=== PATIENT | female | born 1955 | race Two or more races ===

== ENCOUNTER → 2022-07-26 | Outpatient (CLI) | payer MEDICARE, MEDICAID | END | disposition home or self-care (01) | LOC: Rad HDHVI 14:20 | PROVIDERS: ATTEND Internal Medicine Cardiovascular Disease | DX: I10 Essential (primary) hypertension (principal) | CPT/HCPCS: 93306 ==

== ENCOUNTER → 2022-08-18 | Outpatient (CLI) | payer MEDICARE, MEDICAID ==
[~2022-08-18] MED LIST: IOHEXOL 350 MG/ML 100ML IJ ONE
[2022-08-18 11:58] VITALS: BP 160/55
[2022-08-18 12:20] VITALS: BP 160/55
== END | disposition home or self-care (01) ==
LOC: Rad HDHVI 11:48
PROVIDERS: ATTEND Internal Medicine Cardiovascular Disease
DX: R51.9 Headache, unspecified (principal)
CPT/HCPCS: 70470; G0463; Q9967

== ENCOUNTER → 2023-10-18 | Outpatient (CLI) | payer MEDICARE, MEDICAID | END | disposition home or self-care (01) | LOC: Rad HDHVI 15:52 | PROVIDERS: ATTEND Internal Medicine Cardiovascular Disease | DX: I08.0 Rheumatic disorders of both mitral and aortic valves (principal); R06.02 Shortness of breath; I10 Essential (primary) hypertension | CPT/HCPCS: 93306 ==

== ENCOUNTER → 2023-10-24 | Outpatient (CLI) | payer MEDICARE, MEDICAID ==
[~2023-10-24] VITALS: Ht 152.4 cm; Wt 68.0 kg
[~2023-10-24] MED LIST changes: +ADENOSINE 57 MG in GIVE UN-DILUTED 0 ML IV ONE; +ADENOSINE 90 MG/30 ML INJ IV ONE; -IOHEXOL 350 MG/ML 100ML IJ ONE
== END | disposition home or self-care (01) ==
LOC: Rad HDHVI 09:55
PROVIDERS: ATTEND Internal Medicine Cardiovascular Disease
DX: I72.0 Aneurysm of carotid artery (principal); R06.02 Shortness of breath; I10 Essential (primary) hypertension; I25.2 Old myocardial infarction; E78.00 Pure hypercholesterolemia, unspecified
CPT/HCPCS: 78452; 93005; 96374; A9500; J0153; 96375

== ENCOUNTER → 2024-02-15 | Outpatient (CLI) | payer MEDICARE, MEDICAID ==
[~2024-02-15] MED LIST changes: +ACET-1304 PO; -ADENOSINE 57 MG in GIVE UN-DILUTED 0 ML IV ONE; -ADENOSINE 90 MG/30 ML INJ IV ONE; +ASPI-543 PO; +ATOR40TA52 PO; +CETI-120 PO; +FLUT1AER3 IN; +HYDR-2792 PO; +MECL-90 PO; +METO25TA93 PO; +PANT40T PO; +SACU1TAB7 PO
[2024-02-15 09:53] VITALS: BP 129/62; PULSE 70; RESP 16; O2SAT 97
[2024-02-15 10:27] VITALS: BP 125/60; PULSE 70; RESP 16; O2SAT 97
== END | disposition home or self-care (01) ==
LOC: Rad HDHVI 09:34
PROVIDERS: ATTEND Internal Medicine Cardiovascular Disease
DX: Z01.818 Encounter for other preprocedural examination (principal)
CPT/HCPCS: 71046; 93005; G0463

== ENCOUNTER 2024-02-16 08:30 | Day surgery (SDC) | payer MEDICARE, MEDICAID ==
[2024-02-15 13:00] LABS: Basophils % (auto) 0.3 % (0.0-2.0); Eosinophils # (auto) 0 10 ^3/uL (0-0.8); Lymphocytes # (auto) 1.1 10 ^3/uL (0.4-5.4); Monocytes # (auto) 0.2 10 ^3/uL (0-1.3)
[2024-02-15 13:05] LABS: Basophils # (auto) 0.1 10 ^3/uL (0-0.2); Eosinophils % (auto) 0.1 % (0.0-7.0); Hematocrit 32.2 % (36.0-46.0); Hemoglobin 10.5 g/dL (12.2-16.2); Lymphocytes % (auto) 7.1 % (10.0-50.0); Mean Corpuscular Hemoglobin 24.3 pg (28.0-32.0); Mean Corpuscular Hgb Conc. 32.5 g/dL (32.0-36.0); Mean Corpuscular Volume 74.7 fL (80.0-100.0); Neutrophils # (auto) 13.6 10 ^3/uL (1.6-8.6); Neutrophils % (auto) 91.5 % (37.0-80.0); Platelet Count (auto) 649 10^3/uL (140-450); Red Blood Cells 4.31 10^6/uL (4.0-5.20); White Blood Cell 14.9 10^3/uL (4.4-10.8)
[2024-02-15 13:17] LABS: INR 1.65 (0.9-1.15); Prothrombin Time 16.9 sec (9.3-11.8)
[2024-02-15 13:20] LABS: Red Cell Distribution Width 28.4 % (11.8-14.3)
[2024-02-15 13:44] LABS: Chloride 106 mmol/L (98-107); Potassium 4.4 mmol/L (3.5-5.1); Sodium 138 mmol/L (136-145)
[2024-02-15 13:45] LABS: Anion Gap 9 (5-15); Carbon Dioxide 23 mmol/L (20-31)
[2024-02-15 13:50] LABS: BUN/Creatinine Ratio 16.7 (10.0-20.0); Blood Urea Nitrogen 19 mg/dL (9-23); Glucose 121 mg/dL (74-106)
[2024-02-15 14:47] LABS: Platelet Estimate Increased
[2024-02-15 14:48] LABS: Anisocytosis Moderate; Hypochromia Slight
[2024-02-15 14:49] LABS: Ovalocytes FEW; Stomatocytes Few
[~2024-02-16] VITALS: Ht 152.4 cm; Wt 69.4 kg
[2024-02-16] VITALS (10 sets, daily range): BP systolic 112–149; BP diastolic 43–61; PULSE 60–68; RESP 13–18; TEMP 97.9; O2SAT 90–98
[2024-02-16] MEDS ORDERED: fentaNYL CITRATE 100 MCG/2 ML VL ONE (14:09)
[2024-02-16] MEDS ORDERED: ANGIOMAX 250 MG VIAL IV ONE (14:09)
[2024-02-16] MEDS ORDERED: MIDAZOLAM HCL 2MG/2ML 2ml VIAL (1mg/ml) ONE (14:09)
[2024-02-16] MEDS ORDERED: SODIUM CHL 0.9% 0 ML ONE (14:10)
[2024-02-16] MEDS ORDERED: LIDOCAINE 2%HCL (LOCAL ANESTH.) INJ 20ML MDV ONE (14:10)
[2024-02-16] MEDS ORDERED: IOHEXOL 350 MG/ML 100ML IJ ONE (14:33)
[2024-02-16] MEDS: ACETAMINOPHEN 500 MG TAB PO PRN (16:26)
== END 2024-02-16 18:00 | disposition home or self-care (01) ==
LOC: CATH 08:30
PROVIDERS: ATTEND Internal Medicine Cardiovascular Disease
DX: R06.02 Shortness of breath (principal); Z88.6 Allergy status to analgesic agent; Z88.8 Allergy status to other drugs, medicaments and biological substances
CPT/HCPCS: 36415; 80048; 85025; 85610; 85730; 93460; C1760; C1894; J2250; J3010; Q9967; 99152

== ENCOUNTER 2024-03-11 22:22 | Inpatient (IN) | payer MEDICARE, MEDICAID ==
[~2024-03-11] VITALS: Ht 152.4 cm; Wt 68.5 kg
[2024-03-11 23:00] VITALS: PULSE 59; RESP 20; O2SAT 96
[2024-03-11] MEDS: SODIUM CHLORIDE 0.9% 1,000 ML IV ONE (23:00)
[2024-03-11] MEDS: METOCLOPRAMIDE HCL 5MG/ml INJ 2ml VIAL IV ONE (23:00)
[2024-03-11] MEDS: ACETAMINOPHEN 325 MG TAB PO ONE (23:00)
[2024-03-11 23:08] LABS: Basophils # (auto) 0.1 10 ^3/uL (0-0.2); Basophils % (auto) 1.3 % (0.0-2.0); Monocytes # (auto) 0.6 10 ^3/uL (0-1.3); White Blood Cell 9.6 10^3/uL (4.4-10.8)
[2024-03-11 23:11] LABS: Eosinophils # (auto) 0.1 10 ^3/uL (0-0.8); Eosinophils % (auto) 1.4 % (0.0-7.0); Hematocrit 33.7 % (36.0-46.0); Hemoglobin 11.3 g/dL (12.2-16.2); Lymphocytes # (auto) 1.6 10 ^3/uL (0.4-5.4); Lymphocytes % (auto) 16.8 % (10.0-50.0); Mean Corpuscular Hemoglobin 27.2 pg (28.0-32.0); Mean Corpuscular Hgb Conc. 33.7 g/dL (32.0-36.0); Mean Corpuscular Volume 80.8 fL (80.0-100.0); Monocytes % (auto) 6.5 % (0.0-12.0); Neutrophils # (auto) 7.1 10 ^3/uL (1.6-8.6); Platelet Count (auto) 458 10^3/uL (140-450); Red Blood Cells 4.16 10^6/uL (4.0-5.20)
[2024-03-11 23:12] LABS: Chloride 102 mmol/L (98-107); Sodium 134 mmol/L (136-145)
[2024-03-11 23:13] LABS: Anion Gap 10 (5-15); Calcium 9.4 mg/dL (8.7-10.4); Carbon Dioxide 22 mmol/L (20-31); Red Cell Distribution Width 32.3 % (11.8-14.3)
[2024-03-11 23:18] LABS: BUN/Creatinine Ratio 11.1 (10.0-20.0); Blood Urea Nitrogen 13 mg/dL (9-23); Glucose 101 mg/dL (74-106)
[2024-03-11 23:33] LABS: Anisocytosis Marked; Ovalocytes FEW; Platelet Estimate Increased
[2024-03-11 23:34] LABS: Target Cell FEW
[2024-03-12] VITALS (11 sets, daily range): BP systolic 148–169; BP diastolic 57–61; PULSE 54–82; RESP 16–19; TEMP 97.8–97.9; O2SAT 96–99
[2024-03-12] MEDS ORDERED: ONDANSETRON HCL 4 MG/2 ML VIAL IV PRN (03:15)
[2024-03-12] MEDS ORDERED: ACETAMINOPHEN 325 MG TAB PO PRN (03:15)
[2024-03-12] MEDS ORDERED: NITROGLYCERIN 0.4 MG SL TAB SL PRN (03:15)
[2024-03-12] MEDS ORDERED: HYDROcodone-ACET 5/325MG TAB PO PRN (03:15)
[2024-03-12] MEDS ORDERED: MORPHINE SULFATE INJ 2 MG/ml SYRG IV PRN (03:15)
[2024-03-12] MEDS ORDERED: ALBUTEROL SULF 2.5 MG/0.5ML(0.5%) NEB SOLN NEB PRN (04:00)
[2024-03-12] MEDS ORDERED: IPRATROPIUM BROM 0.5 MG/2.5ML INH SOL NEB PRN (04:00)
[2024-03-12] MEDS: SODIUM CHLORIDE 0.9% 1,000 ML IV SCH (04:11)
[2024-03-12 05:48] LABS: Urine Bacteria None Seen /hpf (None Seen)
[2024-03-12 05:55] LABS: Urine Blood Negative /uL (Negative); Urine Clarity Clear (Clear); Urine Color Colorless (Yellow); Urine Protein, UAD Negative (Negative); Urine Specific Gravity 1.004 (1.001-1.035); Urine Urobilinogen Normal (Negative); Urine WBC 1 /hpf (0 - 5); Urine pH 6.5 (5.0-9.0)
[2024-03-12] MEDS: ASPirin-EC 81 mg tab PO SCH (10:17)
[2024-03-12] MEDS: hydrALAZINE HCL 10 MG TAB PO SCH ×2 (10:17→22:44)
[2024-03-12] MEDS: PANTOPRAZOLE 40 MG TAB PO SCH (10:17)
[2024-03-12] MEDS: ENOXAPARIN SOD 40 MG/0.4 ML SYRINGE SC SCH (10:17)
[2024-03-12] MEDS: IPRATROPIUM BROM 0.5 MG/2.5ML INH SOL NEB ONE (15:25)
[2024-03-12] MEDS: METOPROLOL SUCCINATE XL 50 MG TAB PO SCH (20:45)
[2024-03-13] VITALS (8 sets, daily range): BP systolic 115–147; BP diastolic 50–58; PULSE 58–80; RESP 16–20; TEMP 97.6–98.2; O2SAT 94–98
[2024-03-13] MEDS ORDERED: LORazepam 2MG/ML-1ML VIAL IV PRN
[2024-03-13 06:02] LABS: Eosinophils # (auto) 0.2 10 ^3/uL (0-0.8); Hemoglobin 10.6 g/dL (12.2-16.2); Lymphocytes # (auto) 1.9 10 ^3/uL (0.4-5.4); Mean Corpuscular Hgb Conc. 32.7 g/dL (32.0-36.0); Neutrophils # (auto) 5.8 10 ^3/uL (1.6-8.6); White Blood Cell 8.6 10^3/uL (4.4-10.8)
[2024-03-13 06:05] LABS: Basophils # (auto) 0.1 10 ^3/uL (0-0.2); Basophils % (auto) 1.5 % (0.0-2.0); Eosinophils % (auto) 2.7 % (0.0-7.0); Hematocrit 32.5 % (36.0-46.0); Lymphocytes % (auto) 21.9 % (10.0-50.0); Mean Corpuscular Hemoglobin 26.7 pg (28.0-32.0); Mean Corpuscular Volume 81.8 fL (80.0-100.0); Monocytes # (auto) 0.6 10 ^3/uL (0-1.3); Monocytes % (auto) 6.7 % (0.0-12.0); Neutrophils % (auto) 67.2 % (37.0-80.0); Platelet Count (auto) 428 10^3/uL (140-450); Red Blood Cells 3.98 10^6/uL (4.0-5.20)
[2024-03-13 06:12] LABS: Alanine Aminotransferase 13 U/L (7-40); Albumin 3.6 g/dL (3.2-4.8); Alkaline Phosphatase 108 U/L (46-116); Anion Gap 8 (5-15); Aspartate Aminotransferase 11 U/L (13-40); BUN/Creatinine Ratio 10.9 (10.0-20.0); Blood Urea Nitrogen 13 mg/dL (9-23); Calcium 9.4 mg/dL (8.7-10.4); Carbon Dioxide 23 mmol/L (20-31); Chloride 111 mmol/L (98-107); Glucose 87 mg/dL (74-106); Potassium 4.2 mmol/L (3.5-5.1); Sodium 142 mmol/L (136-145)
[2024-03-13 06:13] LABS: Bilirubin, Total 0.7 mg/dL (0.2-1.0); Phosphorus 3.1 mg/dL (2.4-5.1); Total Protein 5.9 g/dL (5.7-8.2)
[2024-03-13 06:21] LABS: Red Cell Distribution Width 32.2 % (11.8-14.3)
[2024-03-13 08:37] LABS: Ovalocytes FEW; Platelet Estimate Adequate
[2024-03-13 08:38] LABS: Anisocytosis Marked
== END 2024-03-13 21:04 | disposition home or self-care (01) | DRG 392 ==
LOC: ER 22:22 → TELE 03-12 03:15 → TELE-WESTW 03-12 18:43
PROVIDERS: ATTEND Student in an Organized Health Care Education/Training Program
DX: A08.4 Viral intestinal infection, unspecified (principal); N17.9 Acute kidney failure, unspecified; E86.0 Dehydration; I11.9 Hypertensive heart disease without heart failure; J44.9 Chronic obstructive pulmonary disease, unspecified; E78.5 Hyperlipidemia, unspecified; H53.461 Homonymous bilateral field defects, right side; I67.1 Cerebral aneurysm, nonruptured; G43.909 Migraine, unspecified, not intractable, without status migrainosus; E03.9 Hypothyroidism, unspecified; F17.200 Nicotine dependence, unspecified, uncomplicated; Z88.6 Allergy status to analgesic agent; Z88.8 Allergy status to other drugs, medicaments and biological substances; Z79.82 Long term (current) use of aspirin; Z79.899 Other long term (current) drug therapy; Z83.3 Family history of diabetes mellitus; Z82.49 Family history of ischemic heart disease and other diseases of the circulatory system
CPT/HCPCS: 36415; 70450; 70551; 71045; 80048; 80053; 81001; 82607; 83036; 84100; 84443; 84484; 85025; 93005; 93886; 94640; 95819; 97163; 99291; G0378; J2405

== ENCOUNTER → 2024-03-20 | Outpatient (CLI) | payer MEDICARE, MEDICAID ==
[2024-03-20 16:43] LABS: % Iron Saturation 15.8 % (15-50)
== END | disposition home or self-care (01) ==
LOC: LAB 15:29
PROVIDERS: ATTEND Pathology Anatomic Pathology & Clinical Pathology
DX: D64.9 Anemia, unspecified (principal)
CPT/HCPCS: 83540; 83550

== ENCOUNTER → 2024-03-26 | Outpatient (CLI) | payer MEDICARE, MEDICAID | END | disposition home or self-care (01) | LOC: LAB 15:11 | PROVIDERS: ATTEND Internal Medicine | DX: Z12.11 Encounter for screening for malignant neoplasm of colon (principal); R19.5 Other fecal abnormalities | CPT/HCPCS: 82270 ==

== ENCOUNTER → 2024-07-25 | Outpatient (CLI) | payer MEDICARE, MEDICAID | END | disposition home or self-care (01) | LOC: Rad HDHVI 12:22 | PROVIDERS: ATTEND Internal Medicine Cardiovascular Disease | DX: I10 Essential (primary) hypertension (principal) | CPT/HCPCS: 93306 ==

== ENCOUNTER → 2024-08-08 | Outpatient (CLI) | payer MEDICARE, MEDICAID ==
[2024-08-08] MEDS: IRON SUCROSE 20 mg/ml 10ml VIAL IV ONE (09:23)
[2024-08-08 09:24] VITALS: BP 144/66; PULSE 83; RESP 16; O2SAT 97
[2024-08-08] MEDS: IRON SUCROSE COMPLEX 110 ML IV ONE (09:33)
[2024-08-08 10:35] VITALS: BP 134/62; PULSE 70; RESP 16; O2SAT 97
== END | disposition home or self-care (01) ==
LOC: CHF HDHVI 09:20
PROVIDERS: ATTEND Internal Medicine Cardiovascular Disease
DX: D50.9 Iron deficiency anemia, unspecified (principal); E78.5 Hyperlipidemia, unspecified; E03.9 Hypothyroidism, unspecified; I10 Essential (primary) hypertension; Z79.899 Other long term (current) drug therapy
CPT/HCPCS: 96365; G0463; J1756

== ENCOUNTER → 2024-08-15 | Outpatient (CLI) | payer MEDICARE, MEDICAID ==
[2024-08-15] MEDS: IRON SUCROSE 20 mg/ml 10ml VIAL IV ONE (11:05)
[2024-08-15] MEDS: IRON SUCROSE COMPLEX 110 ML IV ONE (11:10)
[2024-08-15 11:13] VITALS: BP 148/59; PULSE 77; RESP 18; O2SAT 97
[2024-08-15 12:19] VITALS: BP 143/63; PULSE 71; RESP 18; O2SAT 97
== END | disposition home or self-care (01) ==
LOC: CHF HDHVI 11:01
PROVIDERS: ATTEND Internal Medicine Cardiovascular Disease
DX: D64.9 Anemia, unspecified (principal); I11.9 Hypertensive heart disease without heart failure; J44.9 Chronic obstructive pulmonary disease, unspecified; G43.909 Migraine, unspecified, not intractable, without status migrainosus; E03.9 Hypothyroidism, unspecified; E78.5 Hyperlipidemia, unspecified; F17.200 Nicotine dependence, unspecified, uncomplicated; Z79.899 Other long term (current) drug therapy; Z79.82 Long term (current) use of aspirin; Z88.6 Allergy status to analgesic agent
CPT/HCPCS: 96365; G0463; J1756

== ENCOUNTER → 2024-08-22 | Outpatient (CLI) | payer MEDICARE, MEDICAID ==
[2024-08-22 10:10] VITALS: BP 145/67; PULSE 77; RESP 16; O2SAT 97
[2024-08-22] MEDS: IRON SUCROSE 20 mg/ml 10ml VIAL IV ONE (10:10)
[2024-08-22] MEDS: IRON SUCROSE COMPLEX 110 ML IV ONE (10:28)
[2024-08-22 11:30] VITALS: BP 149/70; PULSE 74; RESP 16; O2SAT 97
== END | disposition home or self-care (01) ==
LOC: CHF HDHVI 09:51
PROVIDERS: ATTEND Internal Medicine Cardiovascular Disease
DX: D50.9 Iron deficiency anemia, unspecified (principal); J44.9 Chronic obstructive pulmonary disease, unspecified; E78.5 Hyperlipidemia, unspecified; I11.9 Hypertensive heart disease without heart failure; E03.9 Hypothyroidism, unspecified; G43.909 Migraine, unspecified, not intractable, without status migrainosus; F17.200 Nicotine dependence, unspecified, uncomplicated; Z79.899 Other long term (current) drug therapy; Z79.82 Long term (current) use of aspirin; Z88.6 Allergy status to analgesic agent
CPT/HCPCS: 96365; G0463; J1756

== ENCOUNTER → 2024-09-05 | Outpatient (CLI) | payer MEDICARE, MEDICAID ==
--- NOTE | 2024-09-05 12:22 | DVH ---
CLINICAL INDICATION: SEVERE BI LAT KNEE PAIN TECHNIQUE: 3 radiographic views of the left knee were obtained. Comparison: None FINDINGS/IMPRESSION: There is no evidence of acute fracture or dislocation. Moderate tricompartmental knee joint osteoarthrosis.
--- NOTE | 2024-09-05 12:22 | DVH ---
CLINICAL INDICATION: SEVERE BI LAT KNEE PAIN TECHNIQUE: 3 radiographic views of the right knee were obtained. Comparison: None FINDINGS/IMPRESSION: There is no evidence of acute fracture or dislocation. Severe tricompartmental knee joint osteoarthrosis. Trace right knee joint effusion.
== END | disposition home or self-care (01) ==
LOC: Rad HDHVI 09:43
PROVIDERS: ATTEND Internal Medicine Cardiovascular Disease
DX: M17.0 Bilateral primary osteoarthritis of knee (principal); M25.562 Pain in left knee; M25.561 Pain in right knee
CPT/HCPCS: 73562

== ENCOUNTER → 2024-09-24 | Outpatient (CLI) | payer MEDICARE, MEDICAID ==
[2024-09-24 10:25] LABS: Basophils # (auto) 0.1 10 ^3/uL (0-0.2); Eosinophils # (auto) 0.3 10 ^3/uL (0-0.8); Monocytes # (auto) 0.6 10 ^3/uL (0-1.3)
[2024-09-24 10:27] LABS: Basophils % (auto) 1.1 % (0.0-2.0); Eosinophils % (auto) 3.5 % (0.0-7.0); Hematocrit 37.2 % (36.0-46.0); Hemoglobin 12.5 g/dL (12.2-16.2); Lymphocytes # (auto) 1.5 10 ^3/uL (0.4-5.4); Lymphocytes % (auto) 17.2 % (10.0-50.0); Mean Corpuscular Hemoglobin 27.7 pg (28.0-32.0); Mean Corpuscular Hgb Conc. 33.5 g/dL (32.0-36.0); Mean Corpuscular Volume 82.7 fL (80.0-100.0); Monocytes % (auto) 7.2 % (0.0-12.0); Neutrophils # (auto) 6.1 10 ^3/uL (1.6-8.6); Platelet Count (auto) 509 10^3/uL (140-450); Red Cell Distribution Width 18.4 % (11.8-14.3); White Blood Cell 8.6 10^3/uL (4.4-10.8)
[2024-09-24 10:31] LABS: Alanine Aminotransferase 25 U/L (7-40); Albumin 4.5 g/dL (3.2-4.8); Alkaline Phosphatase 120 U/L (46-116); Anion Gap 10 (5-15); Aspartate Aminotransferase 18 U/L (13-40); BUN/Creatinine Ratio 13.3 (10.0-20.0); Bilirubin, Direct 0.1 mg/dL (<0.3); Bilirubin, Total 0.5 mg/dL (0.2-1.0); Blood Urea Nitrogen 14 mg/dL (9-23); Calcium 9.8 mg/dL (8.7-10.4); Carbon Dioxide 25 mmol/L (20-31); Chloride 105 mmol/L (98-107); Cholesterol 158 mg/dL (< 200); Glucose 98 mg/dL (74-106); HDL Cholesterol 59 mg/dL (40-59); LDL Cholesterol 77 mg/dL (< 100); Potassium 4.1 mmol/L (3.5-5.1); Sodium 140 mmol/L (136-145); Total Protein 7.2 g/dL (5.7-8.2); Triglycerides 251 mg/dL (< 150)
[2024-09-24 10:44] LABS: Urine Blood Negative /uL (Negative); Urine Clarity Turbid (Clear); Urine Color Light-Yellow (Yellow); Urine Protein, UAD Negative (Negative); Urine Specific Gravity 1.017 (1.001-1.035); Urine Urobilinogen Normal (Negative); Urine pH 5.5 (5.0-9.0)
== END | disposition home or self-care (01) ==
LOC: LAB 09:48
PROVIDERS: ATTEND Internal Medicine Cardiovascular Disease
DX: I10 Essential (primary) hypertension (principal); E11.9 Type 2 diabetes mellitus without complications; E55.9 Vitamin D deficiency, unspecified; D64.9 Anemia, unspecified; R00.2 Palpitations
CPT/HCPCS: 36415; 80048; 80061; 80076; 81003; 83036; 84443; 85025

== ENCOUNTER → 2024-12-12 | Outpatient (CLI) | payer MEDICARE, MEDICAID | END | disposition home or self-care (01) | LOC: Rad HDHVI 12:48 | PROVIDERS: ATTEND Internal Medicine Cardiovascular Disease | DX: I77.1 Stricture of artery (principal); I65.22 Occlusion and stenosis of left carotid artery; I11.0 Hypertensive heart disease with heart failure; I50.33 Acute on chronic diastolic (congestive) heart failure | CPT/HCPCS: 93880 ==

== ENCOUNTER → 2024-12-14 | Outpatient (CLI) | payer MEDICARE, MEDICAID ==
--- NOTE | 2024-12-14 12:18 | DVH ---
CT HEAD WITHOUT CONTRAST INDICATION: TIA EXAM DATE: 12/14/2024 11:32 AM COMPARISON: MRI BRAIN HEAD WO CONTRAST on DOS: 03/13/24, CT HEAD WITHOUT CONTRAST on DOS: 03/11/24, C T HEAD W WO CONTRAST on DOS: 08/18/22 RADIATION DOSE: CTDIvol: 51.44 mGy, DLP: 826.11 mGy*cm PROCEDURE: CT scans of the head were obtained from the vertex to the skull base. Sagittal and coronal reconstructions were provided. All CT scans at this medical facility are performed using dose modulation techniques as appropriate t o a performed exam including the following: Automated exposure control was utilized; adjustment of th e MA and/or KV according to patient size; and use of iterative reconstruction technique. FINDINGS: Interval placement of coil material near the left ICA terminis. 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 There is sulcal and ventricular prominence. The brain othe rwise shows normal morphology and peralta-white matter differentiation, without intracranial hemorrhage, extra-axial fluid collection, mass effect or acute large vessel infarct. The ventricles are normal i n size. The basal cisterns are patent. The skull and visible facial bones are intact. The paranasal s inuses, mastoid air cells and middle ear cavities are well-aerated. The soft tissues of the scalp are unremarkable. IMPRESSION: Interval placement of coil material near the left ICA terminis. 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
== END | disposition home or self-care (01) ==
LOC: Rad HDHVI 11:29
PROVIDERS: ATTEND Internal Medicine Cardiovascular Disease
DX: G45.9 Transient cerebral ischemic attack, unspecified (principal); G93.89 Other specified disorders of brain
CPT/HCPCS: 70450

== ENCOUNTER 2024-12-21 10:56 | Outpatient (CLI) | payer MEDICARE, MEDICAID ==
--- NOTE | 2024-12-21 11:50 | DVH ---
PARANASAL SINUSES: INDICATION: SINUSITIS TECHNIQUE: 4 views FINDINGS: The paranasal sinuses are well-aerated. No abnormal soft tissue densities or air-fluid levels are present. Osseous alignment is anatomic. No displaced fractures are demonstrated. 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
== END 2024-12-21 17:00 | disposition home or self-care (01) ==
LOC: Rad HDHVI 10:56
PROVIDERS: ATTEND Internal Medicine Cardiovascular Disease
DX: J32.9 Chronic sinusitis, unspecified (principal)
CPT/HCPCS: 70220

== ENCOUNTER 2025-03-20 12:38 | Outpatient (CLI) | payer MEDICARE, MEDICAID | END 2025-03-20 17:00 | disposition home or self-care (01) | LOC: Rad HDHVI 12:38 | PROVIDERS: ATTEND Internal Medicine Cardiovascular Disease | DX: I11.0 Hypertensive heart disease with heart failure (principal); I50.33 Acute on chronic diastolic (congestive) heart failure; I51.89 Other ill-defined heart diseases | CPT/HCPCS: 93930 ==